=== PATIENT | female | born 1930 | race Caucasian/White ===

== ENCOUNTER 2020-09-02 11:36 | Inpatient (IN) | payer MEDICARE, BC ==
[~2020-09-02] VITALS: Ht 154.9 cm; Wt 73.2 kg
[2020-09-02 11:44] VITALS: BP 146/55
[2020-09-02] MEDS ORDERED: TENORMIN50 MG PO (11:59)
[2020-09-02] MEDS ORDERED: ARICEPT10 M1 PO (11:59)
[2020-09-02] MEDS ORDERED: LIPITOR20 MG PO (11:59)
[2020-09-02] MEDS ORDERED: ALLOPURINOL100 MG PO (11:59)
[2020-09-02] MEDS ORDERED: CYMBALTA30 MG PO (12:00)
[2020-09-02] MEDS ORDERED: BACLOFEN5 MG PO (12:00)
[2020-09-02] MEDS ORDERED: VITAMIN D250 MC1 PO (12:01)
[2020-09-02] MEDS ORDERED: IMODIUM A-D2 M2 PO (12:01)
[2020-09-02] MEDS ORDERED: DELTASONE2.5 MG PO (12:02)
[2020-09-02] MEDS ORDERED: PROTONIX40 MG PO (12:02)
[2020-09-02] MEDS ORDERED: MAGNESIUM OXID400 MG PO (12:02)
[2020-09-02] MEDS ORDERED: PLAVIX75 M1 PO (12:02)
[2020-09-02] MEDS ORDERED: TYLENOL325 M2 PO (12:03)
[2020-09-02 13:24] LABS: BASO % 0.3 % (0.0-1.0); EOS % 0.3 % (1.0-4.0); HEMATOCRIT 40.5 % (37.0-47.0); LYMPH # 1.5 10*3/uL (1.3-4.4); LYMPH % 13.1 % (27.0-41.0); MEAN CELL VOLUME 95.7 fl (81.0-99.0); MEAN CORPUSCULAR HGB 31.2 pg (27.0-31.0); MEAN CORPUSCULAR HGB CONC 32.6 g/dl (33.0-37.0); MEAN PLATELET VOLUME 10.8 fl (9.6-12.3); MONO # 1.2 10*3/uL (0.1-1.0); MONO % 10.8 % (3.0-9.0); NEUT # 8.7 10*3/uL (2.3-7.9); NEUT % 75.2 % (47.0-73.0); PLATELET COUNT AUTOMATED 226 10*3/uL (130-400); RED BLOOD COUNT 4.23 10*6/uL (4.10-5.10); RED CELL DISTRI WIDTH 12.9 % (0-14.5); WHITE BLOOD COUNT 11.5 10*3/uL (4.8-10.8)
[2020-09-02 13:34] LABS: ACT PARTIAL THROMBO TIME 28.2 SECONDS (20.0-32.1)
[2020-09-02 13:39] LABS: ALBUMIN 3.2 gm/dl (3.1-4.5); ALKALINE PHOSPHATASE 75 U/L (45-117); BUN 21 mg/dl (7-24); CHLORIDE 104 mmol/L (98-107); CREATININE 1.11 mg/dL (0.55-1.02); LIPASE 77 U/L (73-393); POTASSIUM 4.2 mmol/L (3.5-5.1); SGOT/AST 11 IU/L (3-35); SGPT/ALT 19 U/L (12-78); SODIUM 136 mmol/L (136-145); TOTAL PROTEIN 7.2 gm/dL (6.4-8.2)
[2020-09-02 13:43] LABS: TROPONIN I < 0.015 ng/ml (<0.045)
[2020-09-02 14:52] LABS: BILIRUBIN Negative (Negative); BLOOD Trace-Intact (Negative); CLARITY Clear (Clear); COLOR Yellow (Yellow); GLUCOSE Negative (Negative); KETONE Negative (Negative); LEUKO ESTERASE Trace (Negative); NITRITE Negative (Negative); SPECIFIC GRAVITY 1.015 (1.001-1.030)
[2020-09-02 15:24] LABS: BACTERIA TRACE; COARSE GRANULAR CAST 0-2; FINE GRANULAR CAST 0-2; MUCOUS TRACE
[2020-09-02 16:27] VITALS: BP 141/64
[2020-09-03] VITALS (7 sets, daily range): BP systolic 113–168; BP diastolic 44–84
[2020-09-03 05:48] LABS: ALBUMIN 2.9 gm/dl (3.1-4.5); ALKALINE PHOSPHATASE 63 U/L (45-117); BUN 21 mg/dl (7-24); CHLORIDE 101 mmol/L (98-107); CREATININE 1.02 mg/dL (0.55-1.02); POTASSIUM 3.8 mmol/L (3.5-5.1); SGOT/AST 11 IU/L (3-35); SGPT/ALT 16 U/L (12-78); SODIUM 136 mmol/L (136-145); TOTAL PROTEIN 6.9 gm/dL (6.4-8.2)
[2020-09-03 06:19] LABS: BASO % 0.2 % (0.0-1.0); EOS % 0.2 % (1.0-4.0); HEMATOCRIT 39.5 % (37.0-47.0); LYMPH # 1.9 10*3/uL (1.3-4.4); MEAN CELL VOLUME 95.2 fl (81.0-99.0); MEAN CORPUSCULAR HGB 31.1 pg (27.0-31.0); MEAN CORPUSCULAR HGB CONC 32.7 g/dl (33.0-37.0); MEAN PLATELET VOLUME 11.5 fl (9.6-12.3); MONO # 1.5 10*3/uL (0.1-1.0); MONO % 11.8 % (3.0-9.0); NEUT # 9.2 10*3/uL (2.3-7.9); NEUT % 72.4 % (47.0-73.0); PLATELET COUNT AUTOMATED 226 10*3/uL (130-400); RED BLOOD COUNT 4.15 10*6/uL (4.10-5.10); WHITE BLOOD COUNT 12.8 10*3/uL (4.8-10.8)
[2020-09-03 06:37] LABS: ACT PARTIAL THROMBO TIME 30.2 SECONDS (20.0-32.1)
[2020-09-04] VITALS: BP 129/51
[2020-09-04 06:47] LABS: HEMATOCRIT 38.4 % (37.0-47.0); MEAN CELL VOLUME 94.8 fl (81.0-99.0); MEAN CORPUSCULAR HGB 31.1 pg (27.0-31.0); MEAN CORPUSCULAR HGB CONC 32.8 g/dl (33.0-37.0); MEAN PLATELET VOLUME 10.8 fl (9.6-12.3); PLATELET COUNT AUTOMATED 222 10*3/uL (130-400); RED BLOOD COUNT 4.05 10*6/uL (4.10-5.10); WHITE BLOOD COUNT 13.7 10*3/uL (4.8-10.8)
[2020-09-04 07:07] LABS: BUN 20 mg/dl (7-24); CHLORIDE 104 mmol/L (98-107); CREATININE 0.98 mg/dL (0.55-1.02); POTASSIUM 3.7 mmol/L (3.5-5.1); SODIUM 135 mmol/L (136-145)
[2020-09-04 07:56] LABS: PLATELET SUFFICIENCY NORMAL (NORMAL); TOTAL CELLS COUNTED 100 #CELLS
[2020-09-04 08:00] VITALS: BP 152/49
[2020-09-04 12:00] VITALS: BP 156/62
[2020-09-04 16:00] VITALS: BP 142/64
[2020-09-05 08:00] VITALS: BP 149/60
[2020-09-05 12:00] VITALS: BP 132/68
== END 2020-09-05 16:30 | DRG 689 ==
LOC: ED 11:36 → EDHOLD 18:48 → 5E 19:46
PROVIDERS: Emergency Medicine; Hospitalist; Internal Medicine; ADMIT Family Medicine; ATTEND Family Medicine
DX: N39.0 Urinary tract infection, site not specified (principal); N17.0 Acute kidney failure with tubular necrosis; E43 Unspecified severe protein-calorie malnutrition; E87.1 Hypo-osmolality and hyponatremia; R73.9 Hyperglycemia, unspecified; R00.1 Bradycardia, unspecified; F41.9 Anxiety disorder, unspecified; F03.90 Unspecified dementia, unspecified severity, without behavioral disturbance, psychotic disturbance, mood disturbance, and anxiety; M10.9 Gout, unspecified; E78.5 Hyperlipidemia, unspecified; M47.812 Spondylosis without myelopathy or radiculopathy, cervical region; I08.2 Rheumatic disorders of both aortic and tricuspid valves; M48.02 Spinal stenosis, cervical region; M25.711 Osteophyte, right shoulder; R29.6 Repeated falls; E55.9 Vitamin D deficiency, unspecified; I11.9 Hypertensive heart disease without heart failure; M25.512 Pain in left shoulder; M25.511 Pain in right shoulder; M25.522 Pain in left elbow; M25.521 Pain in right elbow; Z20.822 Contact with and (suspected) exposure to COVID-19; I25.10 Atherosclerotic heart disease of native coronary artery without angina pectoris; F32.9 Major depressive disorder, single episode, unspecified; K21.9 Gastro-esophageal reflux disease without esophagitis; Z88.6 Allergy status to analgesic agent; Z86.16 Personal history of COVID-19; Z79.899 Other long term (current) drug therapy; Z79.52 Long term (current) use of systemic steroids; Z87.448 Personal history of other diseases of urinary system; Z68.30 Body mass index [BMI] 30.0-30.9, adult

== ENCOUNTER 2021-02-13 00:58 | Emergency (ER) | payer MEDICARE, BC ==
[~2021-02-13 00:58] MED LIST: ALLOPURINOL100 MG PO; ARICEPT10 M1 PO; BACLOFEN5 MG PO; CYMBALTA30 MG PO; DELTASONE2.5 MG PO; IMODIUM A-D2 M2 PO; LIPITOR20 MG PO; MAGNESIUM OXID400 MG PO; PLAVIX75 M1 PO; PROTONIX40 MG PO; TENORMIN50 MG PO; TYLENOL325 M2 PO; VITAMIN D250 MC1 PO
[2021-02-13 01:21] LABS: BASO % 0.3 % (0.0-1.0); EOS % 0.2 % (1.0-4.0); HEMATOCRIT 40.7 % (37.0-47.0); LYMPH # 1.9 10*3/uL (1.3-4.4); LYMPH % 13.9 % (27.0-41.0); MEAN CELL VOLUME 100.7 fl (81.0-99.0); MEAN CORPUSCULAR HGB 33.4 pg (27.0-31.0); MEAN CORPUSCULAR HGB CONC 33.2 g/dl (33.0-37.0); MEAN PLATELET VOLUME 10.5 fl (9.6-12.3); MONO % 6.9 % (3.0-9.0); NEUT # 10.5 10*3/uL (2.3-7.9); NEUT % 76.6 % (47.0-73.0); PLATELET COUNT AUTOMATED 216 10*3/uL (130-400); RED BLOOD COUNT 4.04 10*6/uL (4.10-5.10); RED CELL DISTRI WIDTH 13.4 % (0-14.5); WHITE BLOOD COUNT 13.7 10*3/uL (4.8-10.8)
[2021-02-13 01:41] LABS: ALBUMIN 2.9 gm/dl (3.1-4.5); CREATININE 1.37 mg/dL (0.55-1.02); POTASSIUM 4.4 mmol/L (3.5-5.1); TOTAL PROTEIN 6.5 gm/dL (6.4-8.2)
[2021-02-13 02:40] LABS: BILIRUBIN Negative (Negative); BLOOD Trace-Lysed (Negative); CLARITY Clear (Clear); COLOR Yellow (Yellow); GLUCOSE Negative (Negative); KETONE Negative (Negative); LEUKO ESTERASE 1+ (Negative); NITRITE Negative (Negative)
[2021-02-13 02:50] LABS: BACTERIA 2+; EPITHELIAL CELLS 16-20
== END 2021-02-13 04:30 ==
LOC: ED 00:58
PROVIDERS: Internal Medicine
DX: N39.0 Urinary tract infection, site not specified (principal); Z79.899 Other long term (current) drug therapy

== ENCOUNTER 2021-02-23 11:04 | Inpatient (IN) | payer MEDICARE, BC ==
[~2021-02-23] VITALS: Ht 154.9 cm; Wt 77.1 kg
[2021-02-23 11:05] VITALS: BP 137/88
[2021-02-23 11:45] LABS: HEMATOCRIT 43.2 % (37.0-47.0); MEAN CELL VOLUME 97.1 fl (81.0-99.0); MEAN CORPUSCULAR HGB 32.8 pg (27.0-31.0); MEAN CORPUSCULAR HGB CONC 33.8 g/dl (33.0-37.0); MEAN PLATELET VOLUME 10.4 fl (9.6-12.3); PLATELET COUNT AUTOMATED 214 10*3/uL (130-400); RED BLOOD COUNT 4.45 10*6/uL (4.10-5.10); RED CELL DISTRI WIDTH 13.6 % (0-14.5); WHITE BLOOD COUNT 15.6 10*3/uL (4.8-10.8)
[2021-02-23 11:58] LABS: ACT PARTIAL THROMBO TIME 26.2 SECONDS (20.0-32.1)
[2021-02-23 12:00] LABS: ALBUMIN 2.5 gm/dl (3.1-4.5); ALKALINE PHOSPHATASE 93 U/L (45-117); BUN 64 mg/dl (7-24); CHLORIDE 101 mmol/L (98-107); CREATININE 2.19 mg/dL (0.55-1.02); LIPASE 519 U/L (73-393); POTASSIUM 5.4 mmol/L (3.5-5.1); SGOT/AST 47 IU/L (3-35); SGPT/ALT 73 U/L (12-78); SODIUM 131 mmol/L (136-145); TOTAL PROTEIN 7.4 gm/dL (6.4-8.2)
[2021-02-23 12:01] LABS: TROPONIN I < 0.015 ng/ml (<0.045)
[2021-02-23 12:03] LABS: ATYPICAL LYMPHS 3 % (0-0); PLATELET SUFFICIENCY NORMAL (NORMAL); TOTAL CELLS COUNTED 100 #CELLS
[2021-02-23 12:54] LABS: BILIRUBIN Negative (Negative); BLOOD Negative (Negative); CLARITY Clear (Clear); COLOR Yellow (Yellow); GLUCOSE Negative (Negative); KETONE Trace (Negative); LEUKO ESTERASE Negative (Negative); NITRITE Negative (Negative); PH 5.5 (4.5-8.0)
[2021-02-23 13:04] LABS: BACTERIA 3+
[2021-02-23 15:43] VITALS: BP 131/82
[2021-02-23 17:30] VITALS: BP 131/36
[2021-02-23 20:00] VITALS: BP 117/40
[2021-02-24] VITALS: BP 121/54
[2021-02-24 06:39] LABS: HEMATOCRIT 39.6 % (37.0-47.0); MEAN CELL VOLUME 99.7 fl (81.0-99.0); MEAN CORPUSCULAR HGB CONC 33.1 g/dl (33.0-37.0); MEAN PLATELET VOLUME 10.7 fl (9.6-12.3); PLATELET COUNT AUTOMATED 215 10*3/uL (130-400); RED BLOOD COUNT 3.97 10*6/uL (4.10-5.10); RED CELL DISTRI WIDTH 13.6 % (0-14.5)
[2021-02-24 06:42] LABS: ALBUMIN 2.2 gm/dl (3.1-4.5); CREATININE 1.63 mg/dL (0.55-1.02); POTASSIUM 4.7 mmol/L (3.5-5.1); TOTAL PROTEIN 6.7 gm/dL (6.4-8.2)
[2021-02-24 06:51] LABS: FREE T4 1.04 ng/dl (0.76-1.46); THYROID STIM HORMONE (HS) 1.94 uIU/ml (0.358-4.75)
[2021-02-24 08:00] VITALS: BP 126/57
[2021-02-24 10:33] LABS: ATYPICAL LYMPHS 8 % (0-0); DIFFERENTIAL COMMENT SMUDGE CELLS PRESENT; TOTAL CELLS COUNTED 100 #CELLS
[2021-02-24 10:34] LABS: BURR CELLS FEW; MICROCYTOSIS SLIGHT; PLATELET SUFFICIENCY NORMAL (NORMAL)
[2021-02-24 12:00] VITALS: BP 137/54
[2021-02-24 16:00] VITALS: BP 122/48
[2021-02-24 20:00] VITALS: BP 108/50; BP 88/44
[2021-02-25] VITALS: BP 129/63
[2021-02-25 06:38] LABS: HEMATOCRIT 40.4 % (37.0-47.0); MEAN CELL VOLUME 99.3 fl (81.0-99.0); MEAN CORPUSCULAR HGB 32.7 pg (27.0-31.0); MEAN CORPUSCULAR HGB CONC 32.9 g/dl (33.0-37.0); MEAN PLATELET VOLUME 10.3 fl (9.6-12.3); PLATELET COUNT AUTOMATED 229 10*3/uL (130-400); RED BLOOD COUNT 4.07 10*6/uL (4.10-5.10); RED CELL DISTRI WIDTH 13.6 % (0-14.5); WHITE BLOOD COUNT 10.7 10*3/uL (4.8-10.8)
[2021-02-25 06:58] LABS: ALBUMIN 2.2 gm/dl (3.1-4.5); CREATININE 1.27 mg/dL (0.55-1.02); POTASSIUM 5.1 mmol/L (3.5-5.1); TOTAL PROTEIN 7.1 gm/dL (6.4-8.2)
[2021-02-25 08:00] VITALS: BP 158/58
[2021-02-25 08:01] LABS: BURR CELLS FEW; PLATELET SUFFICIENCY NORMAL (NORMAL); POLYCHROMASIA SLIGHT; TOTAL CELLS COUNTED 100 #CELLS
[2021-02-25 12:00] VITALS: BP 143/68
== END 2021-02-25 16:35 | DRG 682 ==
LOC: ED 11:04 → EDHOLD 14:10 → 5E 14:10 → EDHOLD 15:52 → 5E 16:44
PROVIDERS: Emergency Medicine; Family Medicine; ADMIT Family Medicine; ATTEND Family Medicine
DX: N17.0 Acute kidney failure with tubular necrosis (principal); G93.41 Metabolic encephalopathy; E87.1 Hypo-osmolality and hyponatremia; N39.0 Urinary tract infection, site not specified; F03.91 Unspecified dementia, unspecified severity, with behavioral disturbance; K21.9 Gastro-esophageal reflux disease without esophagitis; I25.10 Atherosclerotic heart disease of native coronary artery without angina pectoris; E87.5 Hyperkalemia; E83.41 Hypermagnesemia; N18.9 Chronic kidney disease, unspecified; Z20.822 Contact with and (suspected) exposure to COVID-19; E86.0 Dehydration; E78.5 Hyperlipidemia, unspecified; M10.9 Gout, unspecified; Z79.1 Long term (current) use of non-steroidal anti-inflammatories (NSAID); Z79.899 Other long term (current) drug therapy; Z88.5 Allergy status to narcotic agent

== ENCOUNTER 2021-02-26 08:41 | Inpatient (IN) | payer MEDICARE, BC ==
[~2021-02-26] VITALS: Ht 154.9 cm; Wt 75.6 kg
[2021-02-26 08:41] VITALS: BP 170/69
[2021-02-26 09:40] VITALS: BP 123/45
[2021-02-26 12:34] VITALS: BP 167/74
[2021-02-26 17:19] VITALS: BP 153/78
[2021-02-26 17:54] VITALS: BP 139/72
[2021-02-26 20:00] VITALS: BP 167/95
[2021-02-27] VITALS (13 sets, daily range): BP systolic 120–191; BP diastolic 50–92
[2021-02-27 06:40] LABS: BASO # 0.1 10*3/uL (0.0-0.1); BASO % 0.5 % (0.0-1.0); EOS % 0.1 % (1.0-4.0); LYMPH % 17.6 % (27.0-41.0); MEAN CELL VOLUME 99.2 fl (81.0-99.0); MEAN CORPUSCULAR HGB 32.8 pg (27.0-31.0); MEAN CORPUSCULAR HGB CONC 33.1 g/dl (33.0-37.0); MONO # 1.3 10*3/uL (0.1-1.0); MONO % 11.1 % (3.0-9.0); NEUT # 7.8 10*3/uL (2.3-7.9); NEUT % 68.2 % (47.0-73.0); PLATELET COUNT AUTOMATED 274 10*3/uL (130-400); RED BLOOD COUNT 3.63 10*6/uL (4.10-5.10); RED CELL DISTRI WIDTH 13.7 % (0-14.5); WHITE BLOOD COUNT 11.4 10*3/uL (4.8-10.8)
[2021-02-27 06:57] LABS: ALBUMIN 2.3 gm/dl (3.1-4.5); CREATININE 1.3 mg/dL (0.55-1.02); POTASSIUM 4.6 mmol/L (3.5-5.1); TOTAL PROTEIN 6.8 gm/dL (6.4-8.2)
[2021-02-28] VITALS: BP 133/68
[2021-02-28 06:32] LABS: BASO % 0.1 % (0.0-1.0); HEMATOCRIT 32.8 % (37.0-47.0); LYMPH # 1.2 10*3/uL (1.3-4.4); LYMPH % 7.8 % (27.0-41.0); MEAN CELL VOLUME 102.2 fl (81.0-99.0); MEAN CORPUSCULAR HGB 33.3 pg (27.0-31.0); MEAN CORPUSCULAR HGB CONC 32.6 g/dl (33.0-37.0); MEAN PLATELET VOLUME 10.1 fl (9.6-12.3); MONO # 1.1 10*3/uL (0.1-1.0); MONO % 7.1 % (3.0-9.0); NEUT % 83.5 % (47.0-73.0); NUCLEATED RED BLOOD CELL 0.1 % (0.0-0.0); PLATELET COUNT AUTOMATED 237 10*3/uL (130-400); RED BLOOD COUNT 3.21 10*6/uL (4.10-5.10); RED CELL DISTRI WIDTH 13.7 % (0-14.5); WHITE BLOOD COUNT 15.5 10*3/uL (4.8-10.8)
[2021-02-28 06:32] LABS: POTASSIUM 4.8 mmol/L (3.5-5.1)
[2021-02-28 06:36] LABS: CREATININE 1.31 mg/dL (0.55-1.02)
[2021-02-28 08:00] VITALS: BP 144/53
[2021-02-28 12:00] VITALS: BP 135/66
[2021-02-28 16:00] VITALS: BP 123/45
[2021-02-28 20:00] VITALS: BP 151/70
[2021-02-28 22:05] VITALS: BP 151/70
[2021-03-01] VITALS: BP 118/45
[2021-03-01 06:15] LABS: BASO % 0.2 % (0.0-1.0); HEMATOCRIT 29.8 % (37.0-47.0); LYMPH # 1.8 10*3/uL (1.3-4.4); LYMPH % 16.4 % (27.0-41.0); MEAN CELL VOLUME 100.3 fl (81.0-99.0); MEAN CORPUSCULAR HGB 32.7 pg (27.0-31.0); MEAN CORPUSCULAR HGB CONC 32.6 g/dl (33.0-37.0); MEAN PLATELET VOLUME 10.3 fl (9.6-12.3); MONO # 1.1 10*3/uL (0.1-1.0); MONO % 9.9 % (3.0-9.0); NEUT # 8.1 10*3/uL (2.3-7.9); NUCLEATED RED BLOOD CELL 0.3 % (0.0-0.0); PLATELET COUNT AUTOMATED 205 10*3/uL (130-400); RED BLOOD COUNT 2.97 10*6/uL (4.10-5.10); RED CELL DISTRI WIDTH 13.8 % (0-14.5); WHITE BLOOD COUNT 11.2 10*3/uL (4.8-10.8)
[2021-03-01 06:35] LABS: CREATININE 1.05 mg/dL (0.55-1.02); POTASSIUM 4.3 mmol/L (3.5-5.1)
[2021-03-01 08:00] VITALS: BP 113/51
[2021-03-01 12:00] VITALS: BP 140/45
[2021-03-01 16:00] VITALS: BP 149/61
[2021-03-01 20:00] VITALS: BP 138/92
[2021-03-02] VITALS: BP 122/82
[2021-03-02 06:24] LABS: BASO % 0.2 % (0.0-1.0); HEMATOCRIT 30.6 % (37.0-47.0); LYMPH # 1.8 10*3/uL (1.3-4.4); LYMPH % 18.9 % (27.0-41.0); MEAN CELL VOLUME 101.3 fl (81.0-99.0); MEAN CORPUSCULAR HGB 32.8 pg (27.0-31.0); MEAN CORPUSCULAR HGB CONC 32.4 g/dl (33.0-37.0); MEAN PLATELET VOLUME 10.3 fl (9.6-12.3); MONO # 0.8 10*3/uL (0.1-1.0); NEUT # 6.4 10*3/uL (2.3-7.9); NEUT % 69.2 % (47.0-73.0); NUCLEATED RED BLOOD CELL 0.1 10*3/uL (0.0-0.0); NUCLEATED RED BLOOD CELL 0.8 % (0.0-0.0); PLATELET COUNT AUTOMATED 231 10*3/uL (130-400); RED BLOOD COUNT 3.02 10*6/uL (4.10-5.10); RED CELL DISTRI WIDTH 14.1 % (0-14.5); WHITE BLOOD COUNT 9.3 10*3/uL (4.8-10.8)
[2021-03-02 07:45] VITALS: BP 124/58
[2021-03-02 12:00] VITALS: BP 132/60
== END 2021-03-02 17:19 | DRG 480 ==
LOC: ED 08:41 → EDHOLD 10:04 → 4E 10:04
PROVIDERS: Internal Medicine; Orthopaedic Surgery; ADMIT Family Medicine; ATTEND Family Medicine
PROC: 0QS904Z Reposition Left Femoral Shaft with Internal Fixation Device, Open Approach (ICD-10-PCS; principal; 2021-02-27)
PROC: 0QS706Z Reposition Left Upper Femur with Intramedullary Internal Fixation Device, Open Approach (ICD-10-PCS; 2021-02-27)
PROC: 3E0T3BZ Introduction of Anesthetic Agent into Peripheral Nerves and Plexi, Percutaneous Approach (ICD-10-PCS; 2021-02-27)
PROC: 3E0T33Z Introduction of Anti-inflammatory into Peripheral Nerves and Plexi, Percutaneous Approach (ICD-10-PCS; 2021-02-27)
DX: S72.142A Displaced intertrochanteric fracture of left femur, initial encounter for closed fracture (principal); E43 Unspecified severe protein-calorie malnutrition; N17.0 Acute kidney failure with tubular necrosis; S72.342A Displaced spiral fracture of shaft of left femur, initial encounter for closed fracture; F03.90 Unspecified dementia, unspecified severity, without behavioral disturbance, psychotic disturbance, mood disturbance, and anxiety; M1A.9XX0 Chronic gout, unspecified, without tophus (tophi); E55.9 Vitamin D deficiency, unspecified; Z87.448 Personal history of other diseases of urinary system; I25.10 Atherosclerotic heart disease of native coronary artery without angina pectoris; I10 Essential (primary) hypertension; E78.5 Hyperlipidemia, unspecified; F41.9 Anxiety disorder, unspecified; K21.9 Gastro-esophageal reflux disease without esophagitis; F32.A Depression, unspecified; R26.2 Difficulty in walking, not elsewhere classified; D53.9 Nutritional anemia, unspecified; E87.8 Other disorders of electrolyte and fluid balance, not elsewhere classified; R73.9 Hyperglycemia, unspecified; R74.01 Elevation of levels of liver transaminase levels; Z79.1 Long term (current) use of non-steroidal anti-inflammatories (NSAID); Z88.5 Allergy status to narcotic agent; Z79.899 Other long term (current) drug therapy; Z68.31 Body mass index [BMI] 31.0-31.9, adult; N18.30 Chronic kidney disease, stage 3 unspecified

== ENCOUNTER → 2021-03-11 | Outpatient (CLI) | payer MEDICARE, BC | END | disposition home or self-care (01) | LOC: ORTHO 00:32 | PROVIDERS: ATTEND Orthopaedic Surgery | DX: S72.142D Displaced intertrochanteric fracture of left femur, subsequent encounter for closed fracture with routine healing (principal); S72.342D Displaced spiral fracture of shaft of left femur, subsequent encounter for closed fracture with routine healing; S72.001D Fracture of unspecified part of neck of right femur, subsequent encounter for closed fracture with routine healing; X58.XXXD Exposure to other specified factors, subsequent encounter ==

== ENCOUNTER → 2021-04-08 | Outpatient (CLI) | payer MEDICARE, BC | END | disposition home or self-care (01) | LOC: ORTHO 00:30 | PROVIDERS: ATTEND Orthopaedic Surgery | DX: S72.342D Displaced spiral fracture of shaft of left femur, subsequent encounter for closed fracture with routine healing (principal); X58.XXXD Exposure to other specified factors, subsequent encounter ==

== ENCOUNTER 2021-06-06 12:07 | Inpatient (IN) | payer MEDICARE, BC ==
[~2021-06-06] VITALS: Ht 154.9 cm; Wt 62.8 kg
[2021-06-06 12:16] VITALS: BP 160/67
[2021-06-06 12:30] LABS: BASO # 0.1 10*3/uL (0.0-0.1); BASO % 0.9 % (0.0-1.0); EOS # 0.1 10*3/uL (0.0-0.4); EOS % 1.2 % (1.0-4.0); HEMATOCRIT 41.4 % (37.0-47.0); LYMPH # 3.2 10*3/uL (1.3-4.4); LYMPH % 27.4 % (27.0-41.0); MEAN CELL VOLUME 99.8 fl (81.0-99.0); MEAN CORPUSCULAR HGB 30.4 pg (27.0-31.0); MEAN CORPUSCULAR HGB CONC 30.4 g/dl (33.0-37.0); MEAN PLATELET VOLUME 11.1 fl (9.6-12.3); MONO # 1.5 10*3/uL (0.1-1.0); MONO % 12.8 % (3.0-9.0); NEUT # 6.5 10*3/uL (2.3-7.9); NEUT % 56.6 % (47.0-73.0); NUCLEATED RED BLOOD CELL 0.3 % (0.0-0.0); PLATELET COUNT AUTOMATED 329 10*3/uL (130-400); RED BLOOD COUNT 4.15 10*6/uL (4.10-5.10); RED CELL DISTRI WIDTH 20.2 % (0-14.5); WHITE BLOOD COUNT 11.6 10*3/uL (4.8-10.8)
[2021-06-06] MEDS ORDERED: ACIDOPHILUS-PE1 EACH PO (12:35)
[2021-06-06] MEDS ORDERED: ASPIRIN ADULT L81 M1 PO (12:36)
[2021-06-06] MEDS ORDERED: COLACE 2-IN-11 EACH PO (12:37)
[2021-06-06] MEDS ORDERED: PEPCID20 MG PO (12:39)
[2021-06-06] MEDS ORDERED: ZINC50 M4 PO (12:39)
[2021-06-06 12:54] LABS: ALBUMIN 2.2 gm/dl (3.1-4.5); CREATININE 2.52 mg/dL (0.55-1.02); POTASSIUM 4.2 mmol/L (3.5-5.1); TOTAL PROTEIN 7.5 gm/dL (6.4-8.2)
[2021-06-06 14:00] VITALS: BP 143/65
[2021-06-06 15:30] LABS: BILIRUBIN Negative (Negative); BLOOD 2+ (Negative); CLARITY Turbid (Clear); COLOR Yellow (Yellow); GLUCOSE Negative (Negative); KETONE Trace (Negative); LEUKO ESTERASE 3+ (Negative); NITRITE Negative (Negative)
[2021-06-06 15:40] LABS: BACTERIA 4+; WBC TNTC wbc/hpf (0-5)
[2021-06-06 17:11] VITALS: BP 143/65
[2021-06-06 17:32] VITALS: BP 127/93
[2021-06-06 20:00] VITALS: BP 92/52
[2021-06-07] VITALS: BP 100/54
[2021-06-07 06:10] LABS: BASO # 0.1 10*3/uL (0.0-0.1); BASO % 0.6 % (0.0-1.0); EOS # 0.3 10*3/uL (0.0-0.4); EOS % 2.9 % (1.0-4.0); HEMATOCRIT 37.6 % (37.0-47.0); LYMPH # 2.6 10*3/uL (1.3-4.4); LYMPH % 24.8 % (27.0-41.0); MEAN CELL VOLUME 99.5 fl (81.0-99.0); MEAN CORPUSCULAR HGB 30.2 pg (27.0-31.0); MEAN CORPUSCULAR HGB CONC 30.3 g/dl (33.0-37.0); MEAN PLATELET VOLUME 11.6 fl (9.6-12.3); MONO % 9.8 % (3.0-9.0); NEUT # 6.5 10*3/uL (2.3-7.9); NEUT % 60.9 % (47.0-73.0); NUCLEATED RED BLOOD CELL 0.2 % (0.0-0.0); PLATELET COUNT AUTOMATED 255 10*3/uL (130-400); RED BLOOD COUNT 3.78 10*6/uL (4.10-5.10); RED CELL DISTRI WIDTH 19.9 % (0-14.5); WHITE BLOOD COUNT 10.6 10*3/uL (4.8-10.8)
[2021-06-07 06:29] LABS: POTASSIUM 3.7 mmol/L (3.5-5.1)
[2021-06-07 06:40] LABS: CREATININE 2.3 mg/dL (0.55-1.02); TOTAL PROTEIN 6.3 gm/dL (6.4-8.2)
[2021-06-07 08:00] VITALS: BP 134/79
[2021-06-07 12:00] VITALS: BP 165/55
[2021-06-07 16:00] VITALS: BP 90/51
[2021-06-07 20:00] VITALS: BP 97/55
[2021-06-08] VITALS: BP 106/53
[2021-06-08 08:00] VITALS: BP 138/56
[2021-06-08 12:00] VITALS: BP 141/63
== END 2021-06-08 14:08 | disposition hospice, inpatient (51) | DRG 640 ==
LOC: ED 12:07 → EDHOLD 13:51 → 4E 16:44
PROVIDERS: Emergency Medicine; Registered Nurse; ADMIT Student in an Organized Health Care Education/Training Program; ATTEND Student in an Organized Health Care Education/Training Program
DX: E87.0 Hyperosmolality and hypernatremia (principal); N17.0 Acute kidney failure with tubular necrosis; G93.41 Metabolic encephalopathy; E43 Unspecified severe protein-calorie malnutrition; Z66 Do not resuscitate; N18.32 Chronic kidney disease, stage 3b; W19.XXXA Unspecified fall, initial encounter; E86.0 Dehydration; F03.90 Unspecified dementia, unspecified severity, without behavioral disturbance, psychotic disturbance, mood disturbance, and anxiety; M10.9 Gout, unspecified; I25.10 Atherosclerotic heart disease of native coronary artery without angina pectoris; E78.2 Mixed hyperlipidemia; F41.9 Anxiety disorder, unspecified; R62.7 Adult failure to thrive; K21.9 Gastro-esophageal reflux disease without esophagitis; I12.9 Hypertensive chronic kidney disease with stage 1 through stage 4 chronic kidney disease, or unspecified chronic kidney disease; Y93.89 Activity, other specified; Y99.8 Other external cause status; Y92.129 Unspecified place in nursing home as the place of occurrence of the external cause; Z51.5 Encounter for palliative care; Z68.26 Body mass index [BMI] 26.0-26.9, adult; Z88.5 Allergy status to narcotic agent; Z79.1 Long term (current) use of non-steroidal anti-inflammatories (NSAID); Z79.899 Other long term (current) drug therapy; Z90.710 Acquired absence of both cervix and uterus

== ENCOUNTER 2021-06-08 14:23 | Inpatient (IN) | payer OTHER, MEDICARE, BC ==
[~2021-06-08 14:23] MED LIST changes: +ACIDOPHILUS-PE1 EACH PO; +ASPIRIN ADULT L81 M1 PO; +COLACE 2-IN-11 EACH PO; +PEPCID20 MG PO; +ZINC50 M4 PO
[2021-06-08 16:00] VITALS: BP 96/46
[2021-06-08 20:00] VITALS: BP 104/56; BP 118/91
[2021-06-08 23:30] VITALS: BP 108/52
[2021-06-09 08:00] VITALS: BP 114/62
[2021-06-09 12:00] VITALS: BP 124/74
== END 2021-06-09 14:13 | disposition hospice, home (50) | DRG 640 ==
LOC: 4E 14:23
PROVIDERS: ADMIT Internal Medicine; ATTEND Internal Medicine
DX: E86.0 Dehydration (principal); N17.0 Acute kidney failure with tubular necrosis; E43 Unspecified severe protein-calorie malnutrition; G93.40 Encephalopathy, unspecified; E87.0 Hyperosmolality and hypernatremia; I25.10 Atherosclerotic heart disease of native coronary artery without angina pectoris; E78.5 Hyperlipidemia, unspecified; I10 Essential (primary) hypertension; R62.7 Adult failure to thrive; F03.90 Unspecified dementia, unspecified severity, without behavioral disturbance, psychotic disturbance, mood disturbance, and anxiety; Z66 Do not resuscitate; N18.32 Chronic kidney disease, stage 3b; W19.XXXA Unspecified fall, initial encounter; Z51.5 Encounter for palliative care; Y93.89 Activity, other specified; Y99.8 Other external cause status; Z68.26 Body mass index [BMI] 26.0-26.9, adult